=== PATIENT | male | born 2000 | race African-American/Black ===

== ENCOUNTER 2018-01-09 21:50 | Emergency (ER) | payer MEDICAID, OTHER ==
[~2018-01-09] VITALS: Ht 182.9 cm; Wt 91.6 kg
[2018-01-09] MEDS ORDERED: PEPCID AC20 M2 PO (23:00)
[2018-01-09 23:06] VITALS: BP 118/71
[2018-01-09 23:08] VITALS: BP 118/71
--- NOTE | 2018-01-09 23:39 | Emergency Room Report ---
History of Present Illness General Chief Complaint: Chest Pain Source: Patient Present Illness HPI The patient is a 17-year-old male chest tightness for the past 3 days. Patient had gradual onset of symptoms. Patient reports having prior history of asthma. He denies any cough. He denies any difficulty with respirations. He reported onset of symptoms after eating a enchilada. He denies any fever. He had not been vomiting or having diarrhea. He denies any worsening with movements or position. He denied any exertional changes. He denied feeling dizzy or lightheaded. Allergies: Coded Allergies: No Known Allergies (Unverified , 01/09/18) Patient History Past Medical History: see triage record Reviewed Nursing Documentation: PMH: Agreed; PSxH: Agreed Nursing Documentation-PMH Past Medical History: No Stated History Review of Systems All Other Systems: negative except mentioned in HPI Physical Exam Vital Signs Date Time Temp Pulse Resp B/P (MAP) Pulse Ox O2 Delivery O2 Flow Rate FiO2 01/09/18 21:51 98.5 97 16 123/80 97 Room Air 98.4 General Appearance: well appearing, no apparent distress Head: normocephalic, atraumatic ENT: hearing grossly normal, normal voice Neck: full range of motion, supple Respiratory: chest non-tender, lungs clear, no respiratory distress, speaking full sentences Gastrointestinal: normal inspection, non tender, soft Musculoskeletal: normal inspection, back normal, digits/nails normal, no calf tenderness Neurologic: normal inspection, alert, oriented x3, responsive, clinical informaticist III-XII nml as tested, normal gait Psychiatric: mood/affect normal Skin: no rash Medical Decision Making Diagnostic Impression: Primary Impression: Chest pain ER Course patient presented for chest pain. Differential diagnosis included but was not limited to acute coronary syndrome, pulmonary embolism, pneumonia, aortic dissection, shingles, pneumothorax, aortic dissection, esophageal rupture, pericarditis. Because of complexity of patient's case imaging studies were ordered.Bedside ultrasound was performed which showed no evidence of pericardial effusion. The patient appeared to have normal cardiac motion. The patient is advised to follow up with primary care doctor in 1-2 days. Patient is advised to return if any worsening condition or if any changes in status that are concerning. This report is dictated with [employer] pediatric neuropsychologist software which may occasionally lead to discrepancies related to use of this software. EKG Diagnostic Results Rate: normal Rhythm: NSR ST Segments: no acute changes Chest X-Ray Diagnostic Results Chest X-Ray Diagnostic Results : Chest X-Ray Ordered: Yes # of Views/Limited/Complete: 1 View Indication: Chest Pain EP Interpretation: Yes Interpretation: no consolidation, no effusion, no pneumothorax, no acute cardiopulmonary disease Impression: No acute disease Electronically Signed by: Electronically signed by Dr. Mars Eubanks M.D. Last Vital Signs Date Time Temp Pulse Resp B/P (MAP) Pulse Ox O2 Delivery O2 Flow Rate FiO2 01/09/18 23:06 98.4 93 16 118/71 96 Room Air 98.4 Status: improved Disposition: HOME, SELF-CARE Condition: Stable Scripts Famotidine (PEPCID AC) 20 Mg Tablet 20 MG PO DAILY, #30 TAB Prov: Mars Eubanks 01/09/18 Patient Instructions: Nonspecific Chest Pain Mars Eubanks January 09, 2018 23:39
--- NOTE | 2018-01-10 11:38 | Cardiology Report ---
APPROVED REPORT EKG Measurement Heart [id number] Normal sinus rhythm Normal ECG
--- NOTE | 2018-01-14 11:57 | Diagnostic Imaging Report ---
EXAM: XR Chest, 1 View CLINICAL HISTORY: SOB TECHNIQUE: Frontal view of the chest. COMPARISON: No relevant prior studies available. FINDINGS: Lungs: Very mild opacity in the right lower lung may be focal infiltrate. Pleural space: Unremarkable. No pneumothorax. Heart: Heart size upper limits of normal, may be projectional. Mediastinum: Unremarkable. Bones/joints: Unremarkable. IMPRESSION: Very mild opacity in the right lower lung may be focal infiltrate.
== END 2018-01-09 23:08 | disposition home or self-care (01) ==
LOC: EMR 22:10
DX: R07.9 Chest pain, unspecified (principal)
CPT/HCPCS: 71045; 93005; 99283

== ENCOUNTER 2019-06-04 13:46 | Emergency (ER) | payer OTHER ==
[~2019-06-04] VITALS: Ht 182.9 cm; Wt 89.4 kg
[~2019-06-04 13:46] MED LIST: PEPCID AC20 M2 PO
--- NOTE | 2019-06-04 13:53 | NUR ---
ED Nurse Note: Pt not in the waiting room.
[2019-06-04 13:57] VITALS: BP 121/72
--- NOTE | 2019-06-04 14:02 | NUR ---
ED Nurse Note: Patient walked into ED from home with his mother for coughing off mucus and witnessing blood in his mucus. patient reports it's color was red initally 3 days ago, but now it's turning brown, or sometimes clear. patient is alert awake x4 ambulatory steady gait, breathing unlabored and even, speaking in full sentences, patient denies any coughing, fever, chills.
--- NOTE | 2019-06-04 14:15 | Emergency Room Report ---
History of Present Illness General Chief Complaint: General Complaint Source: Patient Present Illness HPI 18-year-old male patient presents the ER complaining of blood in mucus. Reports is been present for the past 3 days. Reports that he would be clearing his throat and spitting and no some blood in his sputum. Reports symptoms began after drinking alcohol a few days ago. Denies vomiting. Denies cough. Denies shortness of breath. Denies night sweats. Denies fever vomiting chills. Reports history of tonsil stones. Denies sore throat. Denies pain with swallowing. Reports mild throat dryness. Denies smoking. Reports symptoms have continued to improve over the past few days. Allergies: Coded Allergies: No Known Allergies (Unverified , 01/09/18) Patient History Past Medical History: see triage record Reviewed Nursing Documentation: PMH: Agreed; PSxH: Agreed Nursing Documentation-PMH Hx Asthma: Yes Review of Systems All Other Systems: negative except mentioned in HPI Physical Exam Vital Signs Date Time Temp Pulse Resp B/P (MAP) Pulse Ox O2 Delivery O2 Flow Rate FiO2 06/04/19 13:57 98.2 86 16 121/72 97 Room Air Sp02 EP Interpretation: reviewed, normal General Appearance: well appearing, no apparent distress, alert, GCS 15, non- toxic Head: normocephalic, atraumatic Eyes: bilateral eye normal inspection, bilateral eye PERRL ENT: hearing grossly normal, normal pharynx, no angioedema, normal voice, uvula midline, moist mucus membranes, other - Right tonsil: Tonsil stone, no erythema, no drainage Neck: full range of motion Respiratory: lungs clear, normal breath sounds, no rhonchi, no respiratory distress, no accessory muscle use, no wheezing, speaking full sentences Cardiovascular #1: regular rate, rhythm, no edema Musculoskeletal: back normal, digits/nails normal, gait/station normal, normal range of motion, non-tender Neurologic: alert, oriented x3, responsive, motor strength/tone normal, sensory intact Lymphatic: no adenopathy Medical Decision Making PA Attestation Dr. Salazar is my supervising Physician whom patient management has been discussed with. Diagnostic Impression: Primary Impression: Throat dryness Additional Impression: Tonsillith ER Course Pt. presents to the ED c/o "blood in sputum" when spitting. Ddx considered but are not limited to esophageal varices, tonsillitis, Lyly Chacon tears, TB, alcohol use. Vital signs: are WNL, pt. is afebrile ER COURSE: Denies coughs or night sweats, no shortness of breath, low suspicion for TB., Tonsilith noted, no signs of infection, patient reports a history of tonsilloliths, advised to follow with ENT specialist. No signs of infection, does not require antibiotics at this time. Patient denies sore throat or pain with swallowing. Patient showed picture of sputum, showed dried blood, no bright red blood associated with acute bleed. Likely due to throat dryness and throat irritation while spitting. Drink plenty of fluids. ER precautions given. Remainder physical exam benign. DISCHARGE: At this time pt is stable for d/c to home. Patient is resting comfortably, in no acute distress, nontoxic appearing, talking without difficulty. Patient to take medications as instructed Will provide with patient care instructions and any necessary prescriptions. Care plan and follow-up instructions provided. Patient instructed to follow-up with primary care provider in 3 - 5 days. Patient questions asked and answered. Patient reports understanding and agreement to treatment plan. ER precautions given. Patient instructed to return to ER immediately for any new or worsening of symptoms including but not limited to increasing SOB, persistent fever, chest pain, intractable vomiting. - Please note that this Emergency Department Report was dictated using [employer] maori technology software, occasionally this can lead to erroneous entry secondary to interpretation by the dictation equipment. Last Vital Signs Date Time Temp Pulse Resp B/P (MAP) Pulse Ox O2 Delivery O2 Flow Rate FiO2 06/04/19 14:06 86 16 Room Air 06/04/19 13:57 98.2 121/72 (88) 97 Status: improved Disposition: HOME, SELF-CARE Condition: Stable Patient Instructions: Salivary Stone Additional Instructions: Followup with primary care provider in 3 -5 days. Follow-up with ENT specialist. Drink plenty of fluids Salt water gargles. Take medications as directed. Patient questions asked and answered. ER precautions given, patient instructed to return to ER immediately for any new or worsening of symptoms. Vasile Hauser Jun 04, 2019 14:15
[2019-06-04 14:20] VITALS: BP 121/72
--- NOTE | 2019-06-04 14:20 | NUR ---
ER DISCHARGE NOTE: Patient is cleared to be discharged per ER ROWDY Bernabe , pt is aox4, on room air, with stable vital signs. pt was given dc instructions, pt was able to verbalize understanding, pt id band removed without complications. pt is able to ambulate with steady gait. pt took all belongings.
== END 2019-06-04 14:20 | disposition home or self-care (01) ==
LOC: EMR 14:10
DX: J39.2 Other diseases of pharynx (principal); J35.8 Other chronic diseases of tonsils and adenoids
CPT/HCPCS: 99281